=== PATIENT | female | born 1965 | race Caucasian/White ===

== ENCOUNTER 2021-03-31 19:58 | Emergency (ER) | payer OTHER ==
[2021-03-31] MEDS ORDERED: VENTOLIN HFA IN18 GM INH ×2 (21:37→21:42)
== END 2021-03-31 21:45 | disposition home or self-care (01) ==
LOC: FER 19:58
DX: U07.1 COVID-19 (principal); E11.9 Type 2 diabetes mellitus without complications; I10 Essential (primary) hypertension
CPT/HCPCS: 99282